=== PATIENT | male | born 2000 | race Caucasian/White ===

== ENCOUNTER 2020-11-25 13:18 | Emergency (ER) | payer OTHER, SELFPAY ==
--- NOTE | ~2020-11-25 | XR_ITS ---
EXAMINATION: XR foot LT min 3V EXAM DATE: 11/25/2020 13:40 INDICATION: trauma yesterday board dropped on left distal foot toes. TECHNIQUE: Left foot dorsoplantar, lateral and oblique projections obtained and reviewed. There is n o prior study for comparison. FINDINGS: Acute closed posttraumatic fractures through the left 1st distal phalanx, fracture lines e xtending through the tuft and also more longitudinally down the length of the shaft to the interphala ngeal joint. There is overlying soft tissue swelling. No other suspicious findings. IMPRESSION: Comminuted nondisplaced left 1st distal phalangeal intra-articular fracture. Reviewed, dictated and finalized at location A. [facility]
--- NOTE | 2020-11-25 13:27 | ED.GENADULT ---
HPI - General Adult General Chief complaint: Extremity Injury, Lower Stated complaint: L/big toe injury Time Seen by Provider: 11/25/20 13:36 Source: patient Mode of arrival: ambulatory Limitations: no limitations History of Present Illness HPI narrative: 20-year-old male patient presents to the [facility] with complaints of left great toe pain. Patient states that a coworker dropped a board on his left great toe yesterday. Patient states he did take 800 mg of ibuprofen as well as elevated and iced it yesterday after working. Patient states he has been able to walk on it but it is very painful and complains of throbbing pain. Related Data Home Medications Medication Instructions Recorded Confirmed No Home Medications 11/25/20 11/25/20 Allergies Allergy/AdvReac Type Severity Reaction Status Date / Time No Known Allergies Allergy Verified 11/25/20 13:36 Review of Systems Review of Systems: Narrative: CONSTITUTIONAL: Denies fever, chills, or sweats. EYES: Denies visual changes, redness, or discharge. ENT: Denies rhinorrhea, congestion, sore throat, or otalgia. CARDIOVASCULAR: Denies chest pain, palpitations, or edema. RESPIRATORY: Denies cough or dyspnea. GASTROINTESTINAL: Denies abdominal pain, nausea, vomiting, or diarrhea. GENITOURINARY: Denies dysuria or hematuria. SKIN: Denies rash or itching. MUSCULOSKELETAL: Denies back pain, joint pain, or myalgia. Positive left great toe pain NEUROLOGIC: Denies headache, numbness, or weakness. PSYCHIATRIC: Denies anxiety or depression. PMFSH Comments At the time of my signature I agree with nursing past medical history, surgical, social, and family history. There is no relevant family history pertinent to the presenting complaint. Exam Narrative: Exam Narrative: GENERAL: Well-appearing, well-nourished, and in no acute distress. HEAD: Normocephalic, atraumatic. EYES: PERRLA and EOMI. ENT: Nares clear, no rhinorrhea or epistaxis. Mucous membranes moist. NECK: Supple. No lymphadenopathy CHEST: Clear to auscultation. No respiratory distress. HEART: Regular rate and rhythm. No murmur heard. Normal peripheral pulses. ABDOMEN: Soft, nontender, nondistended, normal active bowel sounds. EXTREMITIES: Patient able to bear weight and ambulate but has increased pain to left great toe. The left great toe is swollen as well as bright purple bruising noted along the toe. Patient does have a lot of tenderness to the DIP joint. Patient still has good sensation to the tip of the toe. There is a subungual hematoma under the toenail. The L foot is without obvious asymmetry or deformity when compared to the R foot. No bony step-off, nontender to palpation over the other toes, midfoot or hindfoot or sole. Normal plantar/dorsiflexion, inversion/eversion. Distal motor and neurovascular status are intact SKIN: Warm, dry, no rash. NEURO: No focal deficits. Alert and oriented x3. Course Reevaluation(s) Reevaluation #1: Reevaluated patient after his x-ray had resulted. Notified him that there is a fracture to his great toe. Discussed with him that we we will go ahead and moustapha tape as well as put him in Ortho shoe and have him follow-up with the orthopedic doctor. Discussed with him that I did call Dr. Saleem who is on-call for orthopedics today and his office will call him after he has reviewed the x-rays for a follow-up visit. Patient is aware of this plan of care. Discussed with patient he can take Tylenol, ibuprofen, ice and elevate as needed for pain. Patient verbalized understanding denies any other questions or concerns at this time. Date: 11/25/20 Time: 14:05 Vital Signs Vital signs: Vital Signs Temperature 37.0 C 11/25/20 13:30 Pulse Rate 90 11/25/20 13:30 Respiratory Rate 18 11/25/20 13:30 Blood Pressure 149/79 H 11/25/20 13:30 Pulse Oximetry 90 11/25/20 13:30 Temperature 37.0 C 11/25/20 13:30 Pulse Rate 90 11/25/20 13:30 Respiratory Rate 18 11/25/20 13:30
[2020-11-25 13:30] VITALS: BP 149/79; PULSE 90; RESP 18; TEMP 37; O2SAT 90
[2020-11-25] MEDS: ACETAMINOPHEN 500 MG TABLET 1000 MG PO (14:00)
== END 2020-11-25 14:08 | disposition home or self-care (01) ==
PROVIDERS: Emergency Provider Nurse Practitioner Family
DX: S92.425A Nondisplaced fracture of distal phalanx of left great toe, initial encounter for closed fracture (principal); W20.8XXA Other cause of strike by thrown, projected or falling object, initial encounter; S90.112A Contusion of left great toe without damage to nail, initial encounter
CPT/HCPCS: 11740; 73630; 99204; A9270; G0463